=== PATIENT | male | born 1990 ===

== ENCOUNTER 2021-02-09 10:43 | Emergency (ER) | payer OTHER ==
[~2021-02-09] VITALS: Ht 172.7 cm; Wt 70.0 kg
[2021-02-09] MEDS ORDERED: KETOROLAC 30 MG/1 ML IM ONE (11:30)
[2021-02-09] MEDS ORDERED: DIPH,PERTUSS(ACELL),TET VAC/PF 0.5 ML IM-VACC ONE ×2 (11:30→11:33)
[2021-02-09] MEDS ORDERED: KETOROLAC 30 MG/1 ML ONE (11:33)
[2021-02-09] MEDS ORDERED: LIDOCAINE-MPF 1%, 5ML ONE (11:42)
--- NOTE | 2021-02-09 11:45 | NUR ---
PT MEDICATED PER ERP ORDER. LIDOCAINE GIVEN TO CHANDNI VALENZUELA. SEED SERVICE ADVISOR IN TO ASSIST PA WITH REDUCTION AND SPLINT PLACEMENT.
[2021-02-09] MEDS ORDERED: BACITRACIN ZINC OINT 500U/GM, 0.9 GM ONE (11:58)
[2021-02-09] MEDS ORDERED: LIDOCAINE-MPF 1%, 5ML INFIL ONE (12:00)
[2021-02-09 12:50] VITALS: BP 121/61
== END 2021-02-09 12:52 | disposition home or self-care (01) ==
LOC: ED 11:15
DX: S62.512A Displaced fracture of proximal phalanx of left thumb, initial encounter for closed fracture (principal); X50.0XXA Overexertion from strenuous movement or load, initial encounter; Y93.89 Activity, other specified; Y92.69 Other specified industrial and construction area as the place of occurrence of the external cause; Y99.0 Civilian activity done for income or pay
CPT/HCPCS: 26725; 73130; 90471; 90715; 96372; 99284; J1885